=== PATIENT | female | born 1970 | race Hispanic/Latino ===

== ENCOUNTER 2019-05-15 07:36 | Observation (INO) | payer OTHER ==
[~2019-05-15] VITALS: Ht 160 cm; Wt 86.2 kg
[2019-05-15 08:03] LABS: BASOPHILS % (AUTO) 0.3 % (0.0-5.0); LYMPHOCYTES % (AUTO) 10.4 % (21.0-51.0); MEAN CORPUSCULAR HEMOGLOBIN 23.1 pg (27.0-33.0); MEAN CORPUSCULAR HGB CONC 30.8 g/dL (32.0-36.0); MONOCYTES % (AUTO) 5.6 % (3.0-13.0); NEUTROPHILS % (AUTO) 83.7 % (40.0-77.0); NUCLEATED RED BLOOD CELLS 0.1 % (0.0-0.19); PLATELET COUNT (AUTO) 221 K/uL (130-400); RED BLOOD CELL COUNT(AUTO) 2.52 MIL/uL (4.00-5.50); RED CELL DISTRIBUTION WIDTH 19.4 % (11.0-15.5); WHITE BLOOD COUNT (AUTO) 10.8 K/uL (4.8-10.8)
[2019-05-15 08:09] LABS: HEMATOCRIT 18.9 % (36-48)
[2019-05-15 08:12] LABS: CREATININE 0.8 mg/dL (0.5-1.5); POTASSIUM 4.3 mmol/L (3.5-5.1)
[2019-05-15] MEDS ORDERED: ONDANSETRON HCL 4 MG/2 ML VIAL ONE (08:12)
[2019-05-15 08:18] LABS: ALBUMIN 2.7 g/dL (3.5-5.0); BILIRUBIN,TOTAL 0.4 mg/dL (0.2-1.0); TOTAL PROTEIN, SERUM 5.6 g/dL (6.0-8.3)
[2019-05-15 09:16] LABS: PLATELET MORPHOLOGY LARGE PLTS PRESENT
[2019-05-15] MEDS ORDERED: SODIUM CHLORIDE 0.9% 500ML 500 ML IV ONE (09:38)
--- NOTE | 2019-05-15 12:05 | NUR ---
ACTIVITY PT RECEIVED FROM DavisRAnette, ASSISTED TO BATHROOM, PADS ARE COMPLETELY FILLED WITH BLOOD, DIME SIZED CLOT IN PAD, HALF DOLLAR COIN SIZED CLOT IN TOILET, ASSISTED WITH CLARA CARE, PT FELT TIRED AND AND ASSISTED TO BED, NO DIZZINESS NOTED AT THIS TIME; POC DISCUSSED, PT VERBALIZED UNDERSTANDING
[2019-05-15 12:09] VITALS: BP 124/84
[2019-05-15] MEDS ORDERED: ACETAMINOPHEN 325 MG TAB PO PRN ×2 (12:30)
[2019-05-15] MEDS ORDERED: METF-444 PO (12:55)
[2019-05-15] MEDS ORDERED: NORETHINDRONE-ETHINYL ESTRAD 1 TABLET PO SCH (13:06)
--- NOTE | 2019-05-15 14:45 | NUR ---
[facility] 1st UNIT OF PRBCs TRANSFUSED, PT TOLERATED WELL, NO TRANSFUSION REACTION NOTED, VS STABLE
[2019-05-15 15:31] VITALS: BP 132/93
--- NOTE | 2019-05-15 15:31 | NUR ---
ACTIVITY ASSISTED PT TO BATHROOM, WAS ABLE TO VOID, NOTICED 2 NICKEL SIZED CLOTS IN TOILET, PADS HAVE LESS BLEEDING BUT STILL MODERATE, PT BEGAN TO FEEL DIZZY WHEN AMBULATING BACK TO BED, FELT BETTER ONCE IN BED; POC DISCUSSED, PT VERBALIZED UNDERSTANDING
--- NOTE | 2019-05-15 18:00 | NUR ---
PR[facility]s 2nd UNIT OF PRBCs TRANSFUSED, NO TRANSFUSION REACTION NOTED, VS STABLE, PT TOLERATED WELL, NO C/O PAIN
[2019-05-15 18:35] LABS: HEMATOCRIT 28.1 % (36-48)
--- NOTE | 2019-05-15 19:10 | NUR ---
CONSENT READ TO AND DID TEACH BACK REGARDING CONSENT FOR D&C, PT AND SPOUSE VERBALIZED UNDERSTANDING AND PT SIGNED UNDERSTANDING
[2019-05-15 20:10] VITALS: BP 120/83
[2019-05-15] MEDS: SODIUM CHLORIDE 0.9% 1000ML 1,000 ML IV SCH (20:30)
[2019-05-15] MEDS: NORETHINDRONE-ETHINYL ESTRAD 1 TABLET PO SCH (21:05)
--- NOTE | 2019-05-15 22:00 | NUR ---
PT. UP TO BR WITH ASSIST, VOIDED. MODERATE AMT. OF DARK RED BLOOD NOTED IN URINE AND PERIPAD. CLARA CARE DONE AND ASSISTED BACK TO BED. PT. DENIED DIZZINESS AND LIGHTHEADEDNESS. Addendum: 05/16/19 at 0448 by NORBERT MAR RN RN Amended: Links added.
[2019-05-16] VITALS (22 sets, daily range): BP systolic 120–154; BP diastolic 70–84
[2019-05-16 02:18] LABS: HEMATOCRIT 25.2 % (36-48); MEAN CORPUSCULAR HGB CONC 32.2 g/dL (32.0-36.0); MEAN CORPUSCULAR VOLUME 80.6 fL (79-99); NUCLEATED RED BLOOD CELLS 0.1 % (0.0-0.19); PLATELET COUNT (AUTO) 158 K/uL (130-400); RED BLOOD CELL COUNT(AUTO) 3.12 MIL/uL (4.00-5.50); WHITE BLOOD COUNT (AUTO) 13.8 K/uL (4.8-10.8)
[2019-05-16] MEDS: SODIUM CHLORIDE 0.9% 1000ML 1,000 ML IV SCH ×3 (03:05→11:13)
--- NOTE | 2019-05-16 04:00 | NUR ---
PT. ASSIST UP TO BR; VOIDED, SMALL AMT PINKISH BLOOD NOTED. ASSISTED TO SHOWER AFTERWORDS, WELL TOLERATED AND BACK IN BED WITHOUT C/O DIZZINESS OR LIGHTHEADEDNESS. Addendum: 05/16/19 at 0457 by NORBERT MAR RN RN Amended: Links added.
--- NOTE | 2019-05-16 06:47 | NUR ---
DR. TORRE CALLED WITH ORDERS, NOTED.
[2019-05-16] MEDS: NORETHINDRONE-ETHINYL ESTRAD 1 TABLET PO SCH (09:28)
--- NOTE | 2019-05-16 11:48 | NUR ---
TO HOLDING PT TRANSPORTED TO HOLDING AREA, VIA BED, AAO X3, IV PATENT AND INFUSING NS TO [facility], ACCOMPANIED BY JANE SPANN AND VASILE FLOWERS
[2019-05-16] MEDS ORDERED: NEOSTIGMINE 5MG/5ML SYR IV ONE (12:03)
[2019-05-16] MEDS ORDERED: LIDOCAINE PF 2% 5ML ABBOJECT ONE ×2 (12:03→12:04)
[2019-05-16] MEDS ORDERED: ONDANSETRON HCL 4 MG/2 ML VIAL ONE (12:03)
[2019-05-16] MEDS ORDERED: GLYCOPYRROLATE 1 MG/5 ML SYRINGE ONE (12:03)
[2019-05-16] MEDS ORDERED: SUCCINYLCHOLINE 200MG/10ML SYR ONE ×2 (12:03→12:04)
[2019-05-16] MEDS ORDERED: DEXAMETHASONE SOD PHOSPHATE 10MG/ML 1ML VIAL ONE (12:03)
[2019-05-16] MEDS ORDERED: MIDAZOLAM HCL 1 MG/ML 2ML VIAL ONE (12:03)
[2019-05-16] MEDS ORDERED: ROCURONIUM 10MG/1ML SYR 10 MG/ML ML ONE (12:03)
[2019-05-16] MEDS ORDERED: FENTANYL CITRATE PF 50 MCG/1 ML 2ML VIAL ONE (12:03)
[2019-05-16] MEDS ORDERED: PROPOFOL 10 MG/ML 20ML VIAL IV ONE ×2 (12:03→12:53)
--- NOTE | 2019-05-16 13:25 | NUR ---
ROUNDS DR Julius TORRE ROUNDED WITH SPOUSE OF PT, ANSWERED ALL QUESTIONS OR CONCERNS, POC DISCUSSED, SPOUSE VERBALIZED UNDERSTANDING
[2019-05-16] MEDS ORDERED: MEPERIDINE-PF 25 MG/ML SYG ONE ×2 (13:46→13:54)
[2019-05-16] MEDS ORDERED: NORETHINDRONE-ETHINYL ESTRAD 1 TABLET PO SCH (16:05)
--- NOTE | 2019-05-16 19:40 | NUR ---
DISCHARGE INSTRUCTIONS D/C INSTRUCTIONS READ WITH TEACH BACK TO PT AND FAMILY, PRESCRIPTION PROVIDED; PT VERBALIZED AND SIGNED UNDERSTANDING
--- NOTE | 2019-05-16 20:15 | NUR ---
PT. TAKEN TO CAR VIA WC BY CLEMENT. PT'S ACCOMPANIED PT. DENIED PAIN AND DISCOMFORT.
== END 2019-05-16 20:15 | disposition home or self-care (01) ==
LOC: EDH 07:36 → EDHIP 08:20 → WSH 12:00
PROVIDERS: ADMIT Obstetrics & Gynecology; ATTEND Obstetrics & Gynecology
DX: N92.0 Excessive and frequent menstruation with regular cycle (principal); D64.9 Anemia, unspecified; R55 Syncope and collapse; E11.9 Type 2 diabetes mellitus without complications; Z79.899 Other long term (current) drug therapy
CPT/HCPCS: 36415 ×2; 36430 ×2; 58120; 76856; 80053; 82948 ×2; 84702; 85014; 85018; 85025; 85027; 85060; 86850; 86900; 86901; 86922 ×3; 88305; 93005; 96360; 96361; 99291; A4351; G0378 ×36; J0330 ×2; J1100; J2001 ×2; J2175 ×2; J2250; J2405 ×2; J2704 ×2; J2710; J3010; J3490; J7030 ×3; J7040; P9016 ×4